=== PATIENT | female | born 1960 | race Caucasian/White ===

== ENCOUNTER → 2016-12-13 | Outpatient (CLI) | payer BC ==
--- NOTE | 2016-12-13 09:42 | DIAGNOSTIC IMAGING REPORT ---
CERVICAL SPINE 2 OR 3 VIEWS CLINICAL HISTORY: Cervicalgia. COMPARISON STUDY: No previous studies for comparison. FINDINGS: Alignment of the cervical spine is anatomic. Vertebral body heights are maintained. There is no fracture. There is mild disc space narrowing and osteophytosis at C5-C6 and C6-C7. A few calcifications adjacent to spinous processes are chronic. IMPRESSION: 1. No cervical spine fracture. 2. [id number] degenerative disc disease at C5-C6 and C6-C7. Electronically signed by: Desean Booth M.D. 12/13/2016 9:40 AM Dictated Date/Time: 12/13/2016 9:40 AM
== END | disposition home or self-care (01) ==
LOC: C.RADBC 09:19
PROVIDERS: ATTEND Family Medicine
DX: M50.322 Other cervical disc degeneration at C5-C6 level (principal); M50.323 Other cervical disc degeneration at C6-C7 level

== ENCOUNTER → 2017-04-30 | Outpatient (CLI) | payer BC | END | disposition home or self-care (01) | LOC: C.LABSPEC 14:18 → C.PAPS 14:21 | PROVIDERS: ATTEND Family Medicine | DX: Z12.72 Encounter for screening for malignant neoplasm of vagina (principal) ==

== ENCOUNTER → 2017-12-26 | Outpatient (CLI) | payer BC, OTHER ==
--- NOTE | 2017-12-26 11:53 | DIAGNOSTIC IMAGING REPORT ---
CHEST 2 VIEWS ROUTINE HISTORY: 57 years-old Female COUGH acute cough with shortness of breath COMPARISON: None available TECHNIQUE: PA and lateral views of the chest FINDINGS: Cardiac mediastinal and hilar silhouettes are within normal limits. Linear subsegmental opacity of the lateral left midlung suggest atelectasis or scarring. There is no pneumothorax, pleural effusion, overt pulmonary edema or lobar airspace consolidation. Bones of the chest appear grossly intact. IMPRESSION: No acute process. The above report was generated using voice recognition software. It may contain grammatical, syntax or spelling errors. Electronically signed by: Nolberto Ambriz M.D. 12/26/2017 11:52 AM Dictated Date/Time: 12/26/2017 11:50 AM
== END | disposition home or self-care (01) ==
LOC: C.RAD 11:18
PROVIDERS: ATTEND Family Medicine
DX: R05 Cough (principal)

== ENCOUNTER → 2018-04-01 | Outpatient (CLI) | payer OTHER ==
[~2018-04-01] MED LIST: LEVO25TA5 PO; MULT-506 PO; OMEG10007 PO; OPTIRAY 320 IV PRN; OXYM0.0592; PRD20 PO; SULF-302 PO; VNTHFA/IN INH
--- NOTE | 2018-04-01 10:13 | DIAGNOSTIC IMAGING REPORT ---
CT (CHEST) THORAX WITH CT DOSE: 595.52 mGycm HISTORY: Pneumonitis HYPERSENSITIVITY PNEUMONITIS TECHNIQUE: Multiaxial CT images of the chest were performed following the intravenous administration of contrast. A dose lowering technique was utilized adhering to the principles of ALARA. COMPARISON: 02/13/2018 FINDINGS: Considerable improvement compared to the prior study. The lungs are now considered essentially clear. There are no focal infiltrative or peribronchial changes. There is minimal scattered atelectatic changes throughout both hemithoraces. This also is improved. No significant mediastinal or hilar adenopathy on the current study. The thoracic aorta is normal in course and caliber. IMPRESSION: 1. Considerable improvement in the appearance of the chest with lungs now essentially clear. 2. Minimal scattered atelectasis again improved from the prior study. The above report was generated using voice recognition software. It may contain grammatical, syntax or spelling errors. Electronically signed by: Jordi Apple M.D. 04/01/2018 10:12 AM Dictated Date/Time: 04/01/2018 10:05 AM
== END | disposition home or self-care (01) ==
LOC: C.CTS 09:40
PROVIDERS: ATTEND Physician Assistant
DX: J67.9 Hypersensitivity pneumonitis due to unspecified organic dust (principal); J98.11 Atelectasis